=== PATIENT | female | born 1970 | race Caucasian/White ===

== ENCOUNTER → 2025-05-24 | Outpatient (CLI) | payer MEDICAID, SELFPAY ==
--- NOTE | 2025-05-24 13:32 | XR_ITS ---
EXAMINATION: Thoracic spine 3 views TECHNIQUE: AP lateral, lateral upper dorsal spine 3 views Date and time: May 24, 2025, 1345 hours INDICATIONS: Multiple injuries to the back over the last 10 years with worsening back pain. FINDINGS: Mild kyphosis dorsal spine No acute thoracic fracture Moderate thoracic spondylosis. Mild to moderate diffuse thoracic degenerative disc disease IMPRESSION: Mild to moderate diffuse thoracic degenerative disc disease
--- NOTE | 2025-05-24 13:32 | XR_ITS ---
Examination: Lumbar spine, 5 views Technique: Lumbar spine AP, lateral, coned lateral lower lumbar spine, bilateral obliques 5 views Exam date and time: May 24, 2025, 1342 hours INDICATIONS: Multiple injuries to the lower back beginning 10 years ago with back pain worsening traveling down the left leg FINDINGS: Moderate osteopenia. Diffuse moderate facet arthropathy. No lumbar fracture. Moderate disc narrowing L5-S1 No spondylolisthesis Mild lumbar spondylosis IMPRESSION: Mild to moderate diffuse lumbar degenerative disc disease most prominent at L5-S1
== END | disposition home or self-care (01) ==
LOC: CDIM 13:26
PROVIDERS: PCP Internal Medicine; Referring Provider Internal Medicine; Visit Provider Internal Medicine
DX: M51.34 Other intervertebral disc degeneration, thoracic region (principal); M51.360 Other intervertebral disc degeneration, lumbar region with discogenic back pain only; M51.370 Other intervertebral disc degeneration, lumbosacral region with discogenic back pain only
CPT/HCPCS: 72072; 72110

== ENCOUNTER → 2025-07-09 | Outpatient (CLI) | payer MEDICAID, SELFPAY ==
--- NOTE | 2025-07-09 13:30 | XR_ITS ---
EXAMINATION: Thyroid sonography TECHNIQUE: Grayscale sonographic images thyroid lobes Date and time: July 09, 2025, 1337 hours INDICATIONS: Right neck swelling beginning 1 year ago. FINDINGS: Right thyroid 4.8 cm Left thyroid 5.2 cm Isthmus mass with irregular margins 17 x 7 x 14 mm IMPRESSION: Large isthmus solid nodule with irregular margins
== END | disposition home or self-care (01) ==
PROVIDERS: PCP Internal Medicine; Referring Provider Nurse Practitioner Family; Visit Provider Nurse Practitioner Family
DX: E04.1 Nontoxic single thyroid nodule (principal)
CPT/HCPCS: 76536